=== PATIENT | female | born 1970 | race Caucasian/White ===

== ENCOUNTER → 2016-04-29 | Outpatient (CLI) | payer OTHER ==
[~2016-04-29] MED LIST: CATHETER FLUSH 10 ML SYR IV PRN; MULT-301 PO; PANT40TA2 PO; SUCR1TAB36 PO
--- NOTE | 2016-04-29 14:10 | Diagnostic Imaging Report ---
EXAMINATION: HIDA with EF measurements Indication: Abdominal pain TECHNIQUE: After the intravenous administration of 5.5 mCi of Tc 99m Choletec, imaging over the abdomen was obtained. This was followed by administration of Ensure orally to stimulate intrinsic CCK secretion, followed by continued imaging with ejection fraction measured. FINDINGS: There is homogeneous uptake in the liver with prompt bile duct and gallbladder filling seen. Bowel activity is seen at 20 minutes. Based on further imaging and gallbladder area of interest activity measurements after the administration of Ensure, the gallbladder ejection fraction is estimated at 77%. IMPRESSION: 1. Normal hepatobiliary uptake and Gallbladder filling. 2. Normal gallbladder ejection fraction. Dictated by: Dictated on workstation # [id number]
== END ==
LOC: CARD 11:17
PROVIDERS: ATTEND Nurse Practitioner Family
DX: R10.11 Right upper quadrant pain (principal)
CPT/HCPCS: 78227

== ENCOUNTER → 2016-05-06 | Outpatient (CLI) | payer OTHER ==
[~2016-05-06] MED LIST changes: -CATHETER FLUSH 10 ML SYR IV PRN
== END ==
LOC: PREOP 12:31
PROVIDERS: ATTEND Surgery Pediatric Surgery
DX: Z01.818 Encounter for other preprocedural examination (principal); K21.9 Gastro-esophageal reflux disease without esophagitis

== ENCOUNTER 2016-05-07 11:57 | Day surgery (SDC) | payer OTHER ==
[2016-05-07] MEDS ORDERED: HURRICAINE EXT TUBE (BENZOCAINE) XX PRN (12:00)
[2016-05-07] MEDS ORDERED: NALOXONE 0.4 MG/ML 1 ML (NARCAN) VIAL IVP PRN (12:00)
[2016-05-07] MEDS ORDERED: NS IV 500 ML 500 ML IV ONE (12:00)
[2016-05-07 12:10] VITALS: BP 125/71
--- NOTE | 2016-05-07 12:19 | Conscious Sedation/ASA ---
Conscious Sedation Pre-Proced Time Reviewed: 12:10 ASA Class: 2 Airway Mallampati Classification: ([place] appropriate class) I. II. III, IV Lungs Heart ASA score ASA 1: a normal healthy patient ASA 2: a patient with a mild systemic disease (mid diabetes, controlled hypertension, obesity ASA 3: a patient with a severe systemic disease that limits activity (angina , COPD, prior Myocardial infarction) ASA 4: a patient with an incapacitating disease that is a constant threat to life (CHF, renal failure) ASA 5: a moribund patient not expected to survive 24 hrs. (ruptured aneurysm) ASA 6: a declared brain patient whose organs are being harvested. For emergent operations, add the letter E after the classification Grade 3 Sedation Plan: Analgesia, Amnesia, Plan communicated to team members, Discussed options with patient/fam, Discussed risks with patient/fam Note The patient is an appropriate candidate to undergo the planned procedure, sedation, and anesthesia. The patient immediately re-assessed prior to indication. ERIKA GRAF MD May 07, 2016 12:19 pm
[2016-05-07] MEDS ORDERED: ONDANSETRON 4 MG/2 ML (SDV) Z0FRAN IV PRN (12:30)
[2016-05-07] MEDS ORDERED: morphine INJ 10 MG/ML 1ML (SYR OR VIAL) IV PRN (12:30)
[2016-05-07] MEDS ORDERED: ACETAMINOPHEN 325 MG TABLET/CAPLET (TYLENOL) PO PRN (12:30)
[2016-05-07] MEDS ORDERED: HYDROcodone/APAP 5 MG/325 MG (LORTAB) TAB PO PRN (12:30)
[2016-05-07] MEDS ORDERED: MULT-301 PO (12:41)
[2016-05-07] MEDS: fentaNYL INJECTION 100 MCG/2 ML AMP IVP PRN ×2 (12:45→12:49)
[2016-05-07] MEDS: MIDAZOLAM 2 MG/2 ML (VERSED) VIAL IVP PRN ×3 (12:48→12:52)
[2016-05-07] MEDS ORDERED: fentaNYL INJECTION 100 MCG/2 ML AMP ONE (12:49)
[2016-05-07] MEDS ORDERED: LIDOCAINE JELLY 2% (XYLOCAINE) 5 ML TUBE ONE (12:49)
[2016-05-07] MEDS ORDERED: MIDAZOLAM 2 MG/2 ML (VERSED) VIAL ONE ×3 (12:49→12:50)
[2016-05-07] MEDS ORDERED: HURRICAINE EXT TUBE (BENZOCAINE) ONE (12:50)
--- NOTE | 2016-05-07 13:10 | Progress Note-Pre Operative ---
Pre-Operative Progress Note H&P Reviewed The H&P was reviewed, patient examined and no changes noted. Date H&P Reviewed: May 07, 2016 Time H&P Reviewed: 12:10 Pre-Operative Diagnosis: upper abdominal pain, GERD ERIKA GRAF MD May 07, 2016 1:10 pm
--- NOTE | 2016-05-07 13:11 | Progress Note-Post Operative ---
Post-Operative Progess Note Pre-Operative Diagnosis upper abdominal pain, GERD Post-Operative Diagnosis reflux esophagitis(class B), small HH(1.5cm), moderate to severe gastritis of antrum and pylorus with multiple small ulcers(1-2mm), Post-Op Procedure Note Date of Procedure: May 07, 2016 Name of Procedure: EGD with bx. Anesthesia Type CS Estimated blood loss (mL): minimal Specimen(s) collected GE jxn, antrum. ERIKA GRAF MD May 07, 2016 1:11 pm
[2016-05-07] MEDS ORDERED: SUCR1TAB36 PO (13:12)
[2016-05-07] MEDS ORDERED: PANT40TA2 PO (13:12)
--- NOTE | 2016-05-07 13:13 | Discharge Inst-Surgical ---
D/C Lap Instructions-KIDO New, Converted, or Re-Newed RX: RX on Chart Follow Up PRN Activity as tolerated High Fiber Diet 25g or more per day Avoid Alcohol, Caffeine, Spicy [place] and Acid foods. Drink 64 fluid oz or more of fluids per day. Symptoms to Report: Fever over 101 degree F, Nausea/Vomiting If any problems/questions: Contact your physician or go to Emergency Room ERIKA GRAF MD May 07, 2016 1:13 pm
[2016-05-07] MEDS ORDERED: LIDOCAINE JELLY 2% (XYLOCAINE) 5 ML TUBE TOP ONE (13:15)
[2016-05-07 13:35] VITALS: BP 117/81
[2016-05-07 14:00] VITALS: BP 114/79
[2016-05-07 14:05] VITALS: BP 114/79
--- NOTE | 2016-05-09 13:16 | OPERATIVE REPORT ---
PROCEDURE PHYSICIAN: ERIKA GRAF DATE OF PROCEDURE: 05/07/2016 PREOPERATIVE DIAGNOSIS: 1. Right upper quadrant abdominal pain with radiation towards the left upper abdominal quadrant. 2. Reflux. POSTOPERATIVE DIAGNOSES: 1. Reflux esophagitis, class B. 2. Small hiatal hernia, approximately 1.5 cm in size. 3. Severe gastritis with multiple small antral and pyloric ulcers. PROCEDURE: EGD with biopsy. SURGEON: Dr. Graf. ANESTHESIA: Conscious sedation. ESTIMATED BLOOD LOSS: Minimal. FINDINGS: 1. Chronic mild reflux esophagitis, class B. 2. No ulcers or strictures. 3. Small hiatal hernia, approximately 1.5 cm in size. 4. There was a moderate to severe gastritis more towards the stomach antrum and pylorus with multiple small ulcers less than 2 mm in size. DISPOSITION: The patient tolerated the procedure well. Ms Zane Velazquez is a 45-year-old female who has had issues with right upper abdominal quadrant pain with radiation towards the left upper abdominal quadrant. She reports that this has been occurring for the past several months. She does not report any issues of nausea or vomiting. However, does have some issues with reflux. She did undergo an ultrasound, which did not show any gallstones. She did undergo a HIDA scan which did show a normal ejection fraction however she did have reproduction of symptoms upon administration of Kinevac analog. Because of the nature of her symptomatology, we will also proceed with an EGD. PROCEDURE: The patient was brought to the endoscopy suite, laid in left lateral decubitus position. After adequate IV pain and sedative medications and conscious sedation anesthesia, the mouthpiece was applied. The endoscope was placed in the mouth, visualizing the pharynx and hypopharyngeal region. Vocal cords, epiglottis and vallecula identified and appeared to be normal. The endoscope was gently intubated into the esophageal opening and the esophagus insufflated. The endoscope was advanced through the first, second, and 3rd portions esophagus. At the level of the GE junction, a reflux esophagitis, class B identified. There were no ulcers or strictures identified in this region. A biopsy was taken of the GE junction with forceps with visualization of good hemostasis. The endoscope was then easily advanced into the stomach and endoscope retroflexed visualizing a small hiatal hernia approximately 1.5 cm in size. Looking distally at the antrum there were multiple small ulcers of the antrum, as well as the pylorus. Each of these were 1 to 2 mm in size. A biopsy was taken of the larger one with forceps with visualization of good hemostasis. The endoscope was then advanced through duodenum, which appeared normal. The endoscope was then slowly withdrawn while taking a second look and suctioning residual air with no additional findings. The patient tolerated the procedure well. We will have her continue with medical management with necessary lifestyle and diet accommodation including smaller, more frequent meals, avoidance of eating at night, as well as head elevation while lying supine. She also needs to avoid caffeinated beverages, spicy, greasy and acidic fruits. We will also start her on Protonix 40 mg daily, as well as Carafate 1 gram q.i.d. for the next 2 weeks then on a p.r.n. basis. Job ID: [id number] Dictated Date: 05/07/2016 13:07:52 Book Repairer Date: 05/09/2016 13:06:17 / nikhil
== END 2016-05-07 14:10 | disposition home or self-care (01) ==
LOC: ENDO 11:57
PROVIDERS: ATTEND Surgery Pediatric Surgery
DX: K21.0 Gastro-esophageal reflux disease with esophagitis (principal); K44.9 Diaphragmatic hernia without obstruction or gangrene; K29.70 Gastritis, unspecified, without bleeding; K25.9 Gastric ulcer, unspecified as acute or chronic, without hemorrhage or perforation
CPT/HCPCS: 84703; 88305

== ENCOUNTER 2023-01-13 12:38 | Outpatient (CLI) | payer MEDICAID ==
[~2023-01-13] VITALS: Ht 157.5 cm; Wt 73.0 kg
[2023-01-13] MEDS ORDERED: [UNRECOGNIZED DRUG - CODE] IV (14:16)
[2023-01-13] MEDS ORDERED: ALPR0.5T7 PO (14:16)
[2023-01-13] MEDS ORDERED: QUET50TA23 PO (14:16)
[2023-01-13] MEDS ORDERED: DEXL60CA PO (14:16)
[2023-01-13] MEDS ORDERED: PEMB100V IV (14:16)
[2023-01-13] MEDS ORDERED: ONDA4TAB11 SL (14:16)
[2023-01-13] MEDS ORDERED: PRD1T PO (14:16)
== END 2023-01-13 14:22 | disposition home or self-care (01) ==
LOC: PREOP 12:38
PROVIDERS: ATTEND Surgery
DX: Z01.818 Encounter for other preprocedural examination (principal)

== ENCOUNTER 2023-01-19 12:04 | Day surgery (SDC) | payer MEDICAID ==
[~2023-01-19] VITALS: Ht 157.5 cm; Wt 73.0 kg
[~2023-01-19 12:04] MED LIST changes: +ALPR0.5T7 PO; +DEXL60CA PO; +ONDA4TAB11 SL; +PEMB100V IV; +PRD1T PO; +QUET50TA23 PO; +[UNRECOGNIZED DRUG - CODE] IV
[2023-01-19] MEDS ORDERED: LACTATED RINGERS 1,000 ML 1,000 ML IV STA (12:14)
[2023-01-19] MEDS ORDERED: LIDOCAINE JELLY 2% 6 ML SYRINGE MM PRN (12:15)
[2023-01-19] MEDS ORDERED: HURRICAINE EXT TUBE (BENZOCAINE) XX PRN (12:15)
[2023-01-19 12:40] VITALS: BP 105/60
[2023-01-19] MEDS ORDERED: LIDOCAINE JELLY 2% 6 ML SYRINGE ONE (12:58)
[2023-01-19] MEDS ORDERED: ONDANSETRON INJECTION 4 MG/2 ML (SDV) IVP PRN (13:00)
[2023-01-19] MEDS ORDERED: ONDANSETRON 4 MG ORAL DISSOLVE TABLET PO PRN (13:00)
--- NOTE | 2023-01-19 13:00 | Progress Note-Pre Operative ---
Pre-Operative Progress Note Date of Available H&P: Jan 19, 2023 Date H&P Reviewed: Jan 19, 2023 Time H&P Reviewed: 12:30 History & Physical: No changes noted Pre-Operative Diagnosis: gerd, dysphagia ERIKA GRAF MD Jan 19, 2023 12:59
--- NOTE | 2023-01-19 13:01 | Discharge Inst-Surgical ---
D/C Lap Instructions-HOMAR Follow Up Activity as tolerated High Fiber Diet 25g or more per day Avoid Alcohol, Caffeine, Spicy [place] and Acid foods. Drink 64 fluid oz or more of fluids per day. Symptoms to Report: Fever over 101 degree F, Nausea/Vomiting If any problems/questions: Contact your physician or go to Emergency Room ERIKA GRAF MD Jan 19, 2023 13:01
[2023-01-19] MEDS ORDERED: MIDAZOLAM INJ 2 MG/2 ML VIAL ONE (13:29)
[2023-01-19 14:35] VITALS: BP 97/55
--- NOTE | 2023-01-19 14:37 | Anesthesia-General Post-Op ---
MAC Patient Condition Mental Status/LOC: Same as Preop Cardiovascular: Satisfactory Nausea/Vomiting: Absent Respiratory: Satisfactory Pain: Controlled Complications: Absent Post Op Complications Complications None Follow Up Care/Instructions Patient Instructions None needed. Anesthesiology Discharge Order Discharge Order Patient is doing well, no complaints, stable vital signs, no apparent adverse anesthesia problems. No complications reported per nursing. GRACE PICHARDO CRNA Jan 19, 2023 14:37
[2023-01-19 14:40] VITALS: BP 98/56
--- NOTE | 2023-01-19 14:50 | Progress Note-Post Operative ---
Post-Operative Progess Note Surgeon (s)/Dress Finisher (s) Surgeon ERIKA GRAF MD Dress Finisher: none Pre-Operative Diagnosis gerd, dysphagia Post-Operative Diagnosis reflux esophagitis(grade B-C), moderate HH(3cm), moderate gastritis, distal gastric stricture. Procedure & Operative Findings Date of Procedure 01/19/23 Procedure Performed/Findings EGD with bx and ballon dilatation gastric outlet obstruction and GE jxn. Anesthesia Type mac Estimated Blood Loss Estimated blood loss (mL): minimal Specimens/Packing Specimens Removed ge jxn, antrum ERIKA GRAF MD Jan 19, 2023 14:50
[2023-01-19] MEDS ORDERED: OMEP40CA6 PO (14:55)
[2023-01-19 15:19] VITALS: BP 98/56
--- NOTE | 2023-01-19 20:55 | OPERATIVE REPORT ---
DATE OF SERVICE: 01/19/2023 ATTENDING OPERATING ENGINEER APPRENTICE: [facility]. PREOPERATIVE DIAGNOSES: Gastroesophageal reflux disease, dysphagia, hoarseness. POSTOPERATIVE DIAGNOSES: Reflux esophagitis between Jamison grade B and C with a mild distal esophageal stricture, moderate size hiatal hernia, 3 cm in size. 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 The pylorus and duodenum were normal. PROCEDURE: EGD with biopsy and balloon dilatation of the gastric outlet obstruction as well as the gastroesophageal junction. SURGEON: Erika Graf MD ANESTHESIA: Monitored anesthesia care. ESTIMATED BLOOD LOSS: Minimal. FINDINGS: Reflux esophagitis between Jamison grade B and C with a mild distal esophageal stricture, moderate size hiatal hernia, 3 cm in size. 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 The pylorus and duodenum were normal. DISPOSITION: The patient tolerated the procedure well. INDICATIONS: The patient is a 52-year-old female known to us. She was seen for reflux in 04/2016 and underwent an EGD and was found to have reflux esophagitis grade B, small hiatal hernia 1.5 cm in size as well as moderate to severe gastritis and multiple small ulcers. She was treated medically for this. The patient was also seen for morbid obesity and did meet the medical criteria for bariatric surgery, underwent a laparoscopic gastric sleeve resection as well as a laparoscopic cholecystectomy on 06/24/2016. The patient reports since that time, she has been diagnosed with metastatic breast cancer. She has undergone bilateral mastectomy in 2020 and has also been receiving radiation therapy to the chest and mediastinum. Throughout this process, she has developed significant amount of dysphagia as well as a reflux type of symptoms and hoarseness in her voice. She is currently on Dexilant on as well as Pepcid and states that this has not helped her symptoms. DESCRIPTION OF PROCEDURE: The patient was brought to the endoscopy suite and laid in the left lateral decubitus position. After adequate IV pain and sedative medications and monitored anesthesia care, the mouthpiece was applied. The endoscope was placed in the mouth, visualizing the pharynx and hypopharyngeal region. Vocal cords, epiglottis and vallecula identified and appeared to be normal. At the gastroesophageal junction, a reflux esophagitis, Jamison between grade B and C identified as well as a mild distal esophageal stricture and a biopsy was taken with forceps with visualization of good hemostasis. The endoscope was then advanced into the stomach and endoscope retroflexed visualizing a moderate size hiatal hernia, 3 cm in size, which appears to have grown larger in size in 2017. There were changes of the stomach consistent with a laparoscopic gastric sleeve resection. At the incisura angularis of the distal stomach, there was a stricture identified. The endoscope was able to pass through this region into the pylorus. There was moderate gastritis noted. A biopsy was taken of the antrum to rule out H. pylori with visualization of good hemostasis. The endoscope was then advanced through the pylorus into the first and second portion of the duodenum, which appeared normal. The balloon was then placed into the antrum and pylorus and pulled back to the area of the lower gastric stricture. We then proceeded with graded dilatation from 2, 4, then eventually 6 atmospheres of pressure or 20 mm in luminal diameter with moderate resistance and left this in place for approximately 60 seconds. The balloon was then desufflated and removed with visualization of good hemostasis as well as no mucosal tears. The balloon was then placed at the gastroesophageal junction and in a similar manner, a dilated in a graded fashion from 2, 4, then eventually 6 atmospheres of pressure or 20 mm in luminal diameter with 60 seconds in between and once we hit 6 atmospheres of pressure, moderate resistance was encountered and we left this in place for approximately 120 seconds. The balloon was then desufflated and removed with visualization of good hemostasis as well as no mucosal tears. The endoscope was then slowly withdrawn while taking a second look and suctioning of residual air with no additional findings. The patient tolerated the procedure well. We will recommend the necessary lifestyle and dietary accommodation including small and more frequent meals, avoidance of eating at night as well as head elevation while lying supine. She also needs to avoid caffeinated beverages, spicy, greasy and acidic foods. We also want her to continue with Dexilant 60 mg daily; however replace her Pepcid with omeprazole 40 mg daily at a separate time during the day. Due to her previous history of the radiation, there is a chance that she may have recurrent stricture formation and dysphagia and if this were to happen, we were instructed to follow up in the office to schedule a repeat dilatation. Job ID: [id number] DocumentID: [id number] Dictated Date: 01/19/2023 14:42:32 Propulsion Engineer Date: 01/19/2023 20:53:00 Dictated By: ERIKA GRAF MD
== END 2023-01-19 15:18 | disposition home or self-care (01) ==
LOC: ENDO 12:04
PROVIDERS: ATTEND Surgery
DX: K21.00 Gastro-esophageal reflux disease with esophagitis, without bleeding (principal); K22.2 Esophageal obstruction; K29.50 Unspecified chronic gastritis without bleeding; K44.9 Diaphragmatic hernia without obstruction or gangrene; K31.89 Other diseases of stomach and duodenum; Z98.84 Bariatric surgery status; Z90.49 Acquired absence of other specified parts of digestive tract
CPT/HCPCS: 84703; 88305